=== PATIENT | male | born 2000 | race Caucasian/White ===

== ENCOUNTER 2018-06-17 21:18 | Emergency (ER) | payer OTHER ==
[~2018-06-17] VITALS: Ht 172.7 cm; Wt 56.8 kg
[2018-06-17 21:23] VITALS: TEMP 98.5
[2018-06-18 00:27] VITALS: BP 124/70; PULSE 80
== END 2018-06-18 00:27 | disposition home or self-care (01) ==
LOC: COL.ER 21:18
DX: S06.0X0A Concussion without loss of consciousness, initial encounter (principal); S09.93XA Unspecified injury of face, initial encounter; W22.8XXA Striking against or struck by other objects, initial encounter; Y93.72 Activity, wrestling